=== PATIENT | male | born 2000 ===

== ENCOUNTER 2022-10-17 21:53 | Emergency (ER) | payer OTHER ==
[2022-10-17 22:03] VITALS: BP 139/82; PULSE 99; RESP 16; TEMP 98.7; BMI 29.0
[2022-10-17] MEDS ORDERED: FAMOTIDINE 20 MG/50 ML IVPB 20 MG/50 ML MG IVPB ONE (22:14)
== END 2022-10-17 22:48 | disposition home or self-care (01) ==
LOC: FER 21:53
DX: S93.401A Sprain of unspecified ligament of right ankle, initial encounter (principal); X50.9XXA Other and unspecified overexertion or strenuous movements or postures, initial encounter
CPT/HCPCS: 73610-TC-RT-FY; 99283-25